=== PATIENT | female | born 1995 | race Caucasian/White ===

== ENCOUNTER 2018-07-23 18:40 | Emergency (ER) | payer OTHER ==
[2018-07-23 18:45] VITALS: RESP 20; TEMP 98.8
[2018-07-23] MEDS ORDERED: PENICILLIN VK 500MG STARTER 4 TAB BTL PO STA (19:32)
[2018-07-23] MEDS ORDERED: IBUPROFEN 600 MG STARTER PACK 4 TAB BTL PO STA (19:32)
--- NOTE | 2018-07-23 19:35 | ED ---
General Adult HPI - General Source: patient, RN notes reviewed Mode of arrival: ambulatory Limitations: no limitations <Chalino Irwin P - Last Filed: 07/23/18 19:48> <Lita Ward P - Last Filed: 07/23/18 22:20> - General Chief complaint: Dental/Oral Stated complaint: Dental Time Seen by Provider: 07/23/18 18:47 - History of Present Illness Initial comments: 23-year-old female presents to the emergency department for a chief complaint of dental pain 2 weeks. She states it worsened in the past one day. Patient states it is the left upper side of her teeth. She states she has noticed mild swelling of the left side of her face. She states she has been taking 100 mg of Motrin. Patient denies trismus, fevers, sublingual pain or edema, neck stiffness or nausea vomiting. She states she has had similar symptoms previously. She states she does not have a dentist but is looking to find one. Patient has no other complaints at this time including shortness of breath, chest pain, abdominal pain, nausea or vomiting, headache, or visual changes. ( Chalino Irwin) - Related Data Previous Rx's Medication Instructions Recorded Famotidine [Pepcid] 20 mg PO BID PRN #10 tablet 01/09/16 Ibuprofen [Motrin] 600 mg PO Q6HR PRN #20 tab 07/23/18 Penicillin V Potassium [Pen Vee K] 500 mg PO Q6H 10 Days tablet 07/23/18 Allergies Allergy/AdvReac Type Severity Reaction Status Date / Time No Known Allergies Allergy Verified 07/23/18 18:45 Review of Systems ROS Other: All systems not noted in ROS Statement are negative. <Chalino Irwin P - Last Filed: 07/23/18 19:48> ROS Other: All systems not noted in ROS Statement are negative. <Lita Ward P - Last Filed: 07/23/18 22:20> ROS Statement: Those systems with pertinent positive or pertinent negative responses have been documented in the HPI. Past Medical History Past Medical History: No Reported History History of Any Multi-Drug Resistant Organisms: None Reported Past Surgical History: No Surgical Hx Reported Past Psychological History: No Psychological Hx Reported Smoking Status: Never smoker Past Alcohol Use History: None Reported Past Drug Use History: None Reported <Chalino Irwin P - Last Filed: 07/23/18 19:48> General Exam Limitations: no limitations General appearance: alert, in no apparent distress Head exam: Present: atraumatic, normocephalic, normal inspection Eye exam: Present: normal appearance, PERRL, EOMI. Absent: scleral icterus, conjunctival injection, periorbital swelling ENT exam: Present: normal exam, mucous membranes moist, TM's normal bilaterally , normal external ear exam, other (Mild left facial swelling along the left upper jawline). Absent: normal oropharynx (tenderness to palpation in tooth 13 , no abscess along palpation of the gumline, no tenderness or edema noted sublingually) Neck exam: Present: normal inspection, full ROM. Absent: tenderness, meningismus, lymphadenopathy Respiratory exam: Present: normal lung sounds bilaterally. Absent: respiratory distress, wheezes, rales, rhonchi, stridor Cardiovascular Exam: Present: regular rate, normal rhythm, normal heart sounds. Absent: systolic murmur, diastolic murmur, rubs, gallop, clicks Neurological exam: Present: alert, oriented X3, CN II-XII intact Psychiatric exam: Present: normal affect, normal mood <Chalino Irwin P - Last Filed: 07/23/18 19:48> Vital Signs 07/23/18 07/23/18 07/23/18 18:43 19:43 19:44 Temperature 98.8 F Pulse Rate 112 H 120 H Respiratory 20 20 Rate Blood Pressure 159/98 168/117 163/104 O2 Sat by Pulse 100 99 Oximetry Medical Decision Making <Chalino Irwin P - Last Filed: 07/23/18 19:48> <Lita Ward P - Last Filed: 07/23/18 22:20> - Medical Decision Making 23-year-old female presents to the emergency department for chief complaint of dental pain 2 weeks. Pain worsened in the past one day. Patient does not currently dentist but is in the process of establishing a dentist. On exam patient has tenderness to palpation of tooth 13 without abscess. No sublingual edema or swelling. No fevers at home. Temperature is 98.8 here in the emergency department. Vitals show pulse rate of 112, blood pressure 159/98. Patient does admit she is nervous. Patient was given a starter pack of Motrin and penicillin. She will follow up with dentist in 1-2 days. She will return if she has any worsening symptoms. I did discuss following up with primary care for high blood pressure although it is likely due to pain at this time. Denies any dizziness, headache, blurred vision, chest pain, shortness of breath. Discussed with Dr. Ward (Chalino Irwin) I was available for consultation in the emergency department. The history and physical exam were done by the midlevel provider. I was consulted for this patient's care. I reviewed the case with the midlevel provider and based on their presentation of the patient, I agree with the assessment, medical decision making and plan of care as documented. (Lita Ward) Disposition Is patient prescribed a controlled substance at d/c from ED?: No Time of Disposition: 19:34 <Chalino Irwin - Last Filed: 07/23/18 19:48> <Lita Ward - Last Filed: 07/23/18 22:20> Clinical Impression: Pain, dental Disposition: HOME SELF-CARE Condition: Good Instructions: Toothache (ED) Additional Instructions: Please take Motrin and Tylenol for pain. Please ice the area. Take penicillin as directed. Follow-up with dentist in 1-2 days. Return to the emergency department if you have any worsening symptoms. [facility] Address: [address] [place], [place] [id number] Phone: [phone] Prescriptions: Ibuprofen [Motrin] 600 mg PO Q6HR PRN #20 tab PRN Reason: Pain Penicillin V Potassium [Pen Vee K] 500 mg PO Q6H 10 Days tablet Referrals: Hortencia Garcias MD [Primary Care Provider] - 1-2 days
[2018-07-23 19:44] VITALS: PULSE 120
[2018-07-23 19:45] VITALS: BP 163/104
== END 2018-07-23 19:50 | disposition home or self-care (01) ==
LOC: EC 18:40
DX: K08.89 Other specified disorders of teeth and supporting structures (principal); R22.0 Localized swelling, mass and lump, head
CPT/HCPCS: 99282

== ENCOUNTER 2018-10-22 19:01 | Emergency (ER) | payer OTHER ==
[2018-10-22 19:17] VITALS: RESP 18; TEMP 97.6
--- NOTE | 2018-10-22 20:06 | ED ---
Recheck HPI - General Chief Complaint: Recheck/Abnormal Lab/Rx Stated Complaint: wants test for mold Time Seen by Provider: 10/22/18 19:31 Source: patient, RN notes reviewed, old records reviewed Mode of arrival: ambulatory Limitations: no limitations - History of Present Illness Initial Comments: this Patient is a 23-year-old female who presents emergency department today with complaints of wanting a test for mold. Patient reports when she walks with certain how she tends to get a headache. She denies any headache at this time. She denies any other complaints. She states she otherwise feels well at this time. Patient states that she lives in a in apartment with multiple. They contacted her landlord with no help. She denies any difficulty breathing cough congestion shortness of breath. She denies any abdominal pain nausea or vomiting fevers or chills, chest pain, shortness of breath. - Related Data Home Medications Medication Instructions Recorded Confirmed No Known Home Medications 10/22/18 10/22/18 Allergies Allergy/AdvReac Type Severity Reaction Status Date / Time No Known Allergies Allergy Verified 10/22/18 19:32 Review of Systems ROS Statement: Those systems with pertinent positive or pertinent negative responses have been documented in the HPI. ROS Other: All systems not noted in ROS Statement are negative. Past Medical History Past Medical History: No Reported History History of Any Multi-Drug Resistant Organisms: None Reported Past Surgical History: No Surgical Hx Reported Past Psychological History: No Psychological Hx Reported Smoking Status: Never smoker Past Alcohol Use History: None Reported Past Drug Use History: None Reported General Exam - General Exam Comments Initial Comments: Patient is a an obese 23-year-old female. Alert and oriented 3. No acute distress. General: Well appearing, well nourished, in no distress. Oriented x 3, normal mood and affect . Ambulating without difficulty. Skin: Good turgor, Patient has pockmarks scarring over her face and arms. Hair: Normal texture and distribution. HEENT: Head: Normocephalic, atraumatic, no visible or palpable masses, depressions, or scaring. Eyes: Visual acuity intact, conjunctiva clear, sclera non-icteric, EOM intact, PERRL. Pharynx: Mucosa non-inflamed, no tonsillar hypertrophy or exudate Neck: Supple, without lesions, bruits, or adenopathy, thyroid non-enlarged and non-tender Heart: No cardiomegaly or thrills; regular rate and rhythm, no murmur or gallop Lungs: Clear to auscultation and percussion Abdomen: Bowel sounds normal, no tenderness, organomegaly, masses, or hernia Back: Spine normal without deformity or tenderness, no CVA tenderness Extremities: No amputations or deformities, cyanosis, edema or varicosities, peripheral pulses intact Musculoskeletal: Normal gait and station. No misalignment, asymmetry, crepitation, defects, tenderness, masses, effusions, decreased range of motion, instability, atrophy or abnormal strength or tone in the head, neck, spine, ribs , pelvis or extremities. Neurologic: CN 2-12 normal. Sensation to pain, touch, and proprioception normal. DTRs normal in upper and lower extremities. No pathologic reflexes. Psychiatric: Oriented X3, intact recent and remote memory, judgment and insight , normal mood and affect. Limitations: no limitations Course Vital Signs 10/22/18 10/22/18 19:13 20:16 Temperature 97.6 F Pulse Rate 79 78 Respiratory 18 18 Rate Blood Pressure 159/99 144/74 O2 Sat by Pulse 100 97 Oximetry Medical Decision Making - Medical Decision Making 23-year-old female reports that she has intermittent headache which she wasn't to steroids or rales. She was caused by multiple. She wants the test normal. Discussed at this time she has no difficulty breathing or headache or other complaints that there is no test I can do for mold. I discussed that she should follow-up with her [facility] primary care physician. All questions answered and return parameters were discussed. She was agreeable for discharge. Disposition Clinical Impression: Suspected condition not found Disposition: HOME SELF-CARE Condition: Good Instructions (If sedation given, give patient instructions): Acute Headache (ED ) Additional Instructions: Patient advised to follow-up with your housing department. Patient should make sure that you're having your dehumidifier's run. Return to the emergency department if any alarming signs or symptoms occur. Is patient prescribed a controlled substance at d/c from ED?: No Referrals: Hortencia Garcias MD [Primary Care Provider] - 1-2 days Time of Disposition: 20:02
[2018-10-22 20:17] VITALS: BP 144/74; PULSE 78
== END 2018-10-22 20:17 | disposition home or self-care (01) ==
LOC: EC 19:01
DX: Z03.818 Encounter for observation for suspected exposure to other biological agents ruled out (principal)
CPT/HCPCS: 99282

== ENCOUNTER 2018-11-07 22:48 | Emergency (ER) | payer OTHER ==
[2018-11-07] MEDS ORDERED: SODIUM CHLORIDE 0.9% 500 ML 500 ML IV STA (23:13)
[2018-11-07] MEDS ORDERED: ONDANSETRON 4 MG/2 ML VIAL IVP STA (23:13)
[2018-11-07 23:25] LABS: Basophils % (A) 0 %; Eosinophils % (A) 1 %; HCT 44.1 % (34.0-46.0); HGB 14.2 gm/dL (11.4-16.0); Lymphocytes # (A) 2.4 k/uL (1.0-4.8); Lymphocytes % (A) 28 %; MCH 26.3 pg (25.0-35.0); MCHC 32.2 g/dL (31.0-37.0); MCV 81.8 fL (80.0-100.0); Mean Platelet Volume 7.4; Monocytes # (A) 0.6 k/uL (0-1.0); Monocytes % (A) 7 %; Neutrophils # (A) 5.2 k/uL (1.3-7.7); Neutrophils % (A) 62 %; Platelet Count 237 k/uL (150-450); RBC 5.39 m/uL (3.80-5.40); WBC 8.5 k/uL (3.8-10.6)
[2018-11-07 23:38] LABS: ALT 54 U/L (9-52); AST 40 U/L (14-36); Albumin 4.6 g/dL (3.5-5.0); Alkaline Phosphatase 72 U/L (38-126); Amylase 43 U/L (30-110); Anion Gap 13 mmol/L; Blood Urea Nitrogen 11 mg/dL (7-17); Calcium 9.3 mg/dL (8.4-10.2); Carbon Dioxide 23 mmol/L (22-30); Chloride 107 mmol/L (98-107); Glucose 127 mg/dL (74-99); Lipase 101 U/L (23-300); Potassium 4.3 mmol/L (3.5-5.1); Sodium 143 mmol/L (137-145); Total Bilirubin 0.5 mg/dL (0.2-1.3); Total Protein 7.9 g/dL (6.3-8.2)
[2018-11-07 23:44] LABS: Amorphous Sediment,Urine Rare /hpf; Appearance,Urine Cloudy (Clear); Bacteria,Urine Rare /hpf; Bilirubin,Urine Negative (Negative); Blood,Urine Negative (Negative); Color,Urine Yellow; Glucose,Urine (UA) Negative (Negative); Hyaline Casts,Urine 27 /lpf (0-2); Ketones,Urine 2+ (Negative); Leukocyte Esterase,Urine Small (Negative); Mucus,Urine Moderate /hpf; Nitrite,Urine Negative (Negative); Protein,Urine 1+ (Negative); RBC,Urine 2 /hpf (0-5); Specific Gravity,Urine 1.025 (1.001-1.035); Squamous Epithelial Cell,Urine 11 /hpf (0-4); WBC,Urine 3 /hpf (0-5)
--- NOTE | 2018-11-08 00:32 | ED ---
Abdominal Pain HPI - General Chief Complaint: Abdominal Pain Stated Complaint: Vomiting Time Seen by Provider: 11/07/18 23:01 Source: patient Mode of arrival: ambulatory Limitations: no limitations - History of Present Illness Initial Comments: This patient is 23-year-old woman who presents to be evaluated for vomiting, diarrhea, and then also having an episode of epistaxis tonight. The patient states that she had not been feeling well for going on 24 hours now. She began having vomiting and diarrhea last night and believes she has had about 5-6 e pisodes. She states she has had probably 8 or 10 episodes of watery diarrhea. She has had a little bit of intermittent abdominal cramping but not really much in way of abdominal pain. She was convinced to come in tonight to be seen after she had noted some blood when she last vomited. She states that it seems that she had little bit of a nosebleed. The patient contrary to nursing notes does n ot believe the blood was gastrointestinal. She states that the nosebleed stopped after little bit of pressure. she denies other complaints MD Complaint: other (Vomiting and diarrhea) Onset/Timin -: days(s) Location: periumbilical Migration to: no migration Severity scale (1-10): 0 Quality: cramping Consistency: now resolved Improves With: vomiting Worsens With: nothing Associated Symptoms: nausea, vomiting, diarrhea - Related Data Home Medications Medication Instructions Recorded Confirmed Ibuprofen [Motrin Ib] 400 mg PO Q6H PRN 11/07/18 11/07/18 Phenylephrine/Dm/Acetaminop/GG 10 ml PO Q6H PRN 11/07/18 11/07/18 [Vicks Dayquil Severe Cold-Flu] Previous Rx's Medication Instructions Recorded Ondansetron Odt [Zofran ODT] 4 mg PO Q8HR PRN #10 tab 11/08/18 Allergies Allergy/AdvReac Type Severity Reaction Status Date / Time No Known Allergies Allergy Verified 11/07/18 23:12 Review of Systems ROS Statement: Those systems with pertinent positive or pertinent negative responses have been documented in the HPI. ROS Other: All systems not noted in ROS Statement are negative. Constitutional: Denies: fever, chills ENT: Reports: as per HPI, epistaxis Respiratory: Denies: cough, dyspnea Cardiovascular: Denies: chest pain, syncope Gastrointestinal: Reports: as per HPI, nausea, vomiting, diarrhea. Denies: a bdominal pain, hematemesis, melena, hematochezia Genitourinary: Denies: dysuria, hematuria, abnormal menses Musculoskeletal: Denies: back pain Skin: Denies: rash Neurological: Denies: headache, weakness Hematological/Lymphatic: Denies: easy bleeding Past Medical History Past Medical History: No Reported History History of Any Multi-Drug Resistant Organisms: None Reported Past Surgical History: No Surgical Hx Reported Past Psychological History: No Psychological Hx Reported Smoking Status: Never smoker Past Alcohol Use History: None Reported Past Drug Use History: None Reported General Exam Limitations: no limitations General appearance: alert, in no apparent distress Head exam: Present: atraumatic, normocephalic Eye exam: Present: normal appearance ENT exam: Present: other (Dried blood left naris) Respiratory exam: Present: normal lung sounds bilaterally. Absent: respiratory distress, wheezes, rales, rhonchi, stridor Cardiovascular Exam: Present: regular rate, normal rhythm, normal heart sounds. Absent: systolic murmur, diastolic murmur, rubs, gallop GI/Abdominal exam: Present: soft, normal bowel sounds. Absent: distended, tenderness, guarding, rebound, rigid, mass, hernia Extremities exam: Present: normal inspection, normal capillary refill. Absent: pedal edema Back exam: Present: normal inspection. Absent: CVA tenderness (R), CVA tenderness (L) Skin exam: Present: warm, dry, intact, normal color. Absent: rash Course Vital Signs 11/07/18 22:53 Temperature 97.9 F Pulse Rate 121 H Respiratory 16 Rate Blood Pressure 149/104 O2 Sat by Pulse 95 Oximetry Medical Decision Making - Lab Data Result diagrams: 11/07/18 23:08 11/07/18 23:08 Lab Results 11/07/18 11/07/18 11/07/18 Range/Units 23:08 23:08 23:08 WBC 8.5 (3.8-10.6) k/uL RBC 5.39 (3.80-5.40) m/uL Hgb 14.2 (11.4-16.0) gm/dL Hct 44.1 (34.0-46.0) % MCV 81.8 (80.0-100.0) fL MCH 26.3 (25.0-35.0) pg MCHC 32.2 (31.0-37.0) g/dL RDW 14.0 (11.5-15.5) % Plt Count 237 (150-450) k/uL Neutrophils % 62 % Lymphocytes % 28 % Monocytes % 7 % Eosinophils % 1 % Basophils % 0 % Neutrophils # 5.2 (1.3-7.7) k/uL Lymphocytes # 2.4 (1.0-4.8) k/uL Monocytes # 0.6 (0-1.0) k/uL Eosinophils # 0.0 (0-0.7) k/uL Basophils # 0.0 (0-0.2) k/uL Sodium 143 (137-145) mmol/L Potassium 4.3 (3.5-5.1) mmol/L Chloride 107 (98-107) mmol/L Carbon Dioxide 23 (22-30) mmol/L Anion Gap 13 mmol/L BUN 11 (7-17) mg/dL Creatinine 0.80 (0.52-1.04) mg/dL Est GFR (CKD-EPI)AfAm >90 (>60 ml/min/1.73 sqM) Est GFR (CKD-EPI)NonAf >90 (>60 ml/min/1.73 sqM) Glucose 127 H (74-99) mg/dL Calcium 9.3 (8.4-10.2) mg/dL Total Bilirubin 0.5 (0.2-1.3) mg/dL AST 40 H (14-36) U/L ALT 54 H (9-52) U/L Alkaline Phosphatase 72 (38-126) U/L Total Protein 7.9 (6.3-8.2) g/dL Albumin 4.6 (3.5-5.0) g/dL Amylase 43 (30-110) U/L Lipase 101 (23-300) U/L Urine Color Yellow Urine Appearance Cloudy H (Clear) Urine pH 6.0 (5.0-8.0) Ur Specific [place] 1.025 (1.001-1.035) Urine Protein 1+ H (Negative) Urine Glucose (UA) Negative (Negative) Urine Ketones 2+ H (Negative) Urine Blood Negative (Negative) Urine Nitrite Negative (Negative) Urine Bilirubin Negative (Negative) Urine Urobilinogen 3.0 (<2.0) mg/dL Ur Leukocyte Esterase Small H (Negative) Urine RBC 2 (0-5) /hpf Urine WBC 3 (0-5) /hpf Ur Squamous Epith Cells 11 H (0-4) /hpf Amorphous Sediment Rare H (None) /hpf Urine Bacteria Rare H (None) /hpf Hyaline Casts 27 H (0-2) /lpf Urine Mucus Moderate H (None) /hpf Urine HCG, Qual (Not Detectd) 11/07/18 Range/Units 23:08 WBC (3.8-10.6) k/uL RBC (3.80-5.40) m/uL Hgb (11.4-16.0) gm/dL Hct (34.0-46.0) % MCV (80.0-100.0) fL MCH (25.0-35.0) pg MCHC (31.0-37.0) g/dL RDW (11.5-15.5) % Plt Count (150-450) k/uL Neutrophils % % Lymphocytes % % Monocytes % % Eosinophils % % Basophils % % Neutrophils # (1.3-7.7) k/uL Lymphocytes # (1.0-4.8) k/uL Monocytes # (0-1.0) k/uL Eosinophils # (0-0.7) k/uL Basophils # (0-0.2) k/uL Sodium (137-145) mmol/L Potassium (3.5-5.1) mmol/L Chloride (98-107) mmol/L Carbon Dioxide (22-30) mmol/L Anion Gap mmol/L BUN (7-17) mg/dL Creatinine (0.52-1.04) mg/dL Est GFR (CKD-EPI)AfAm (>60 ml/min/1.73 sqM) Est GFR (CKD-EPI)NonAf (>60 ml/min/1.73 sqM) Glucose (74-99) mg/dL Calcium (8.4-10.2) mg/dL Total Bilirubin (0.2-1.3) mg/dL AST (14-36) U/L ALT (9-52) U/L Alkaline Phosphatase (38-126) U/L Total Protein (6.3-8.2) g/dL Albumin (3.5-5.0) g/dL Amylase (30-110) U/L Lipase (23-300) U/L Urine Color Urine Appearance (Clear) Urine pH (5.0-8.0) Ur Specific [place] (1.001-1.035) Urine Protein (Negative) Urine Glucose (UA) (Negative) Urine Ketones (Negative) Urine Blood (Negative) Urine Nitrite (Negative) Urine Bilirubin (Negative) Urine Urobilinogen (<2.0) mg/dL Ur Leukocyte Esterase (Negative) Urine RBC (0-5) /hpf Urine WBC (0-5) /hpf Ur Squamous Epith Cells (0-4) /hpf Amorphous Sediment (None) /hpf Urine Bacteria (None) /hpf Hyaline Casts (0-2) /lpf Urine Mucus (None) /hpf Urine HCG, Qual Not Detected (Not Detectd) Disposition Clinical Impression: Epistaxis, Vomiting Disposition: HOME SELF-CARE Condition: Good Instructions (If sedation given, give patient instructions): Acute Nausea and Vomiting (ED) Prescriptions: Ondansetron Odt [Zofran ODT] 4 mg PO Q8HR PRN #10 tab PRN Reason: Nausea Is patient prescribed a controlled substance at d/c from ED?: No Referrals: Hortencia Garcias MD [Primary Care Provider] - 1-2 days
[2018-11-08 00:41] VITALS: BP 134/65; PULSE 80; RESP 15; TEMP 98
== END 2018-11-08 00:40 | disposition home or self-care (01) ==
LOC: EC 22:48
DX: R11.2 Nausea with vomiting, unspecified (principal); R04.0 Epistaxis; R19.7 Diarrhea, unspecified; R10.33 Periumbilical pain
CPT/HCPCS: 36415; 80053; 82150; 83690; 85025; 81001; 81025; 99284; 96374; 96361; J2405

== ENCOUNTER 2019-03-13 23:16 | Emergency (ER) | payer OTHER ==
[2019-03-13 23:33] VITALS: RESP 18; TEMP 98.3
--- NOTE | 2019-03-14 00:23 | XR ---
EXAM: XR Right Ankle Complete, 3 or More Views CLINICAL HISTORY: None. TECHNIQUE: Frontal, lateral and oblique views of the right ankle. COMPARISON: No relevant prior studies available. FINDINGS: Bones/joints: Acute non-displaced fracture of the medial and lateral malleolus. Evidence of prior plate and screws noted about the distal fibula. No dislocation. Soft tissues: Mild soft tissue swelling about the ankle. IMPRESSION: Acute non-displaced fracture of the medial and lateral malleolus.
--- NOTE | 2019-03-14 00:45 | ED ---
Lower Extremity Injury HPI - General Chief Complaint: Extremity Injury, Lower Stated Complaint: Fall, Ankle pain Time Seen by Provider: 03/13/19 23:48 Source: patient Mode of arrival: wheelchair Limitations: no limitations - History of Present Illness Initial Comments: Patient is a 23-year-old male presenting to emergency Department with right ankle pain. Patient reports 2 hours ago she was walking down stairs when she slipped and rolled her ankle. Patient reports minimal pain and rates it a 3 and throbbing. Patient reports the pain is exacerbated with weightbearing but she is able to ambulate without much difficulty. Patient denies any numbness or tingling. Patient reports previous surgery in her right lower leg. Patient denies taking any medication to alleviate the symptoms. Patient denies any head trauma after fall. - Related Data Home Medications Medication Instructions Recorded Confirmed Ibuprofen [Motrin Ib] 400 mg PO Q6H PRN 11/07/18 11/07/18 Phenylephrine/Dm/Acetaminop/GG 10 ml PO Q6H PRN 11/07/18 11/07/18 [Vicks Dayquil Severe Cold-Flu] Previous Rx's Medication Instructions Recorded Ondansetron Odt [Zofran ODT] 4 mg PO Q8HR PRN #10 tab 11/08/18 Allergies Allergy/AdvReac Type Severity Reaction Status Date / Time No Known Allergies Allergy Verified 03/13/19 23:33 Review of Systems ROS Statement: Those systems with pertinent positive or pertinent negative responses have been documented in the HPI. ROS Other: All systems not noted in ROS Statement are negative. Past Medical History Past Medical History: No Reported History History of Any Multi-Drug Resistant Organisms: None Reported Past Surgical History: No Surgical Hx Reported Past Psychological History: No Psychological Hx Reported Smoking Status: Never smoker Past Alcohol Use History: None Reported Past Drug Use History: None Reported General Exam - General Exam Comments Initial Comments: General: Well-developed well-nourished distress HEENT: Normocephalic/atraumatic, PERLL, pharynx erythema, swallowing well, EAC no erythema, no exudates, TM clear, no cervical lymph nodes Neck: Supple, nontender, trachea midline Chest/Lungs: Normal respirations, no signs of respiratory distress clear to auscultation bilaterally no wheezes, rales, rhonchi Cardiac: Regular rate and rhythm, normal S1-S2, no murmurs rubs or gallops Abdomen/GI: Soft nontender, bowel sounds equal or quadrant x4, no guarding, no rebound no CVA tenderness : Deferred Musculoskeletal: Lateral and medial malleoli tenderness with palpation of the right leg, normal capillary refill bilaterally, +2 dorsalis pedis and posterior tibialis laterally, limited range of motion due to pain. Skin: Warmth, no rashes or lesions, no cyanosis or diaphoresis Neurologic: AAO x 3, CN 2-12 intact, Psychiatric: Mood and affect normal, judgment normal Limitations: no limitations Course Vital Signs 03/13/19 03/14/19 23:31 01:14 Temperature 98.3 F 98.3 F Pulse Rate 73 78 Respiratory 18 18 Rate Blood Pressure 133/85 148/78 O2 Sat by Pulse 100 98 Oximetry Procedures - Orthopedic Splinting/Casting Injury #1 Side: right Lower Extremity Injury Location: ankle Lower Extremity Immobilizer: stirrup splint Other Orthopedic Equipment: crutches Medical Decision Making - Medical Decision Making Patient is a 23-year-old female presenting to emergency Department with right ankle pain. X-ray of the right ankle is indicative of a medial and lateral malleoli fractures. Stirrup splint was applied. Patient advised to apply cold compress on the right ankle to minimize swelling. Patient advised to alternate between Tylenol and ibuprofen for pain control. Patient advised to follow with orthopedics for further management. Strict return parameters were thoroughly discussed with patient who is understanding and agreeable. Case discussed with physician. Disposition Clinical Impression: Medial malleolar fracture, Lateral malleolar fracture Disposition: HOME SELF-CARE Condition: Stable Instructions (If sedation given, give patient instructions): Ankle Fracture (DC) Additional Instructions: Please follow with orthopedics. Please return to emergency department if symptoms worsen. Is patient prescribed a controlled substance at d/c from ED?: No Referrals: Hortencia Garcias MD [Primary Care Provider] - 1-2 days Time of Disposition: 00:44
[2019-03-14 01:14] VITALS: BP 148/78; PULSE 78
== END 2019-03-14 01:14 | disposition home or self-care (01) ==
LOC: EC 23:16
DX: S82.841A Displaced bimalleolar fracture of right lower leg, initial encounter for closed fracture (principal); W10.9XXA Fall (on) (from) unspecified stairs and steps, initial encounter; X50.1XXA Overexertion from prolonged static or awkward postures, initial encounter; Y93.01 Activity, walking, marching and hiking
CPT/HCPCS: 29515; 99283

== ENCOUNTER → 2019-03-30 | Outpatient (CLI) | payer OTHER | END | disposition home or self-care (01) | LOC: LABWHC1 16:09 | PROVIDERS: ATTEND Physician Assistant | DX: M25.571 Pain in right ankle and joints of right foot (principal); S82.844D Nondisplaced bimalleolar fracture of right lower leg, subsequent encounter for closed fracture with routine healing | CPT/HCPCS: 36415; 82306 ==

== ENCOUNTER → 2019-05-03 | Outpatient (CLI) | payer OTHER | END | disposition home or self-care (01) | LOC: LABWHC1 15:52 | PROVIDERS: ATTEND Physician Assistant | DX: M25.571 Pain in right ankle and joints of right foot (principal); S82.844D Nondisplaced bimalleolar fracture of right lower leg, subsequent encounter for closed fracture with routine healing | CPT/HCPCS: 36415; 82306 ==

== ENCOUNTER 2019-10-06 15:21 | Emergency (ER) | payer OTHER ==
[2019-10-06 15:31] VITALS: BP 131/100; PULSE 84; RESP 18; TEMP 97.9
--- NOTE | 2019-10-06 16:07 | XR ---
EXAMINATION TYPE: XR chest 2V DATE OF EXAM: 10/06/2019 COMPARISON: 12/16/2012 HISTORY: 24-year-old female cough TECHNIQUE: PA and lateral views FINDINGS: The cardiomediastinal silhouette, aorta, and pulmonary vasculature are within normal limits. Lungs an d pleural spaces are clear. IMPRESSION: No acute cardiopulmonary process.
--- NOTE | 2019-10-06 16:10 | XR ---
EXAMINATION TYPE: XR ankle complete RT DATE OF EXAM: 10/06/2019 COMPARISON: 03/13/2019 HISTORY: 24-year-old female swelling and pain for 3 days TECHNIQUE: 3 views FINDINGS: Lateral sideplate and screw fixation of the distal fibula. Previously seen medial malleolus and dista l fibular fractures appear healed. Some bony thickening along the lower syndesmosis was present back on 03/13/2019 suggesting old syndesmotic injury. Corticated bone fragment below the medial malleolus re lating to remote injury. Tiny plantar calcaneal spur. No acute fracture, subluxation, dislocation see n. There may be some slight focal soft tissue swelling lateral aspect of the distal third leg. IMPRESSION: 1. Underlying lateral sideplate and screw fixation hardware along the distal fibula. Healed bimalleol ar ankle fractures. Old syndesmotic injury. 2. There may be some mild focal soft tissue swelling lateral aspect of the distal third leg. Correlat e for possible cellulitis.
--- NOTE | 2019-10-06 16:22 | ED ---
General Adult HPI - General Chief complaint: Upper Respiratory Infection Stated complaint: Sob/ankle pain Time Seen by Provider: 10/06/19 15:32 Source: patient Mode of arrival: ambulatory Limitations: no limitations - History of Present Illness Initial comments: Patient is a 24-year-old female presenting to the emergency department with chief complaint of a cough. States that she wants to be evaluated for bronchitis. Patient reports a nonproductive cough for slightly over a week. Denies any sinus congestion but does report bilateral otalgia intermittent. Patient denies any shortness of breath or chest pain. Denies smoking or history of asthma. Denies any sore throat. Patient does report occasional pain in the right ankle where she had a previous ankle surgery. She also has hardware present as well. Patient reports occasional pain with ambulation over the last several days. She does report some mild swelling in the region. Reports full range of motion. Denies any skin changes or ecchymosis. - Related Data Home Medications Medication Instructions Recorded Confirmed Ibuprofen [Motrin Ib] 400 mg PO Q6H PRN 11/07/18 11/07/18 Phenylephrine/Dm/Acetaminop/GG 10 ml PO Q6H PRN 11/07/18 11/07/18 [Vicks Dayquil Severe Cold-Flu] Previous Rx's Medication Instructions Recorded Ondansetron Odt [Zofran ODT] 4 mg PO Q8HR PRN #10 tab 11/08/18 Allergies Allergy/AdvReac Type Severity Reaction Status Date / Time No Known Allergies Allergy Verified 10/06/19 15:35 Review of Systems ROS Statement: Those systems with pertinent positive or pertinent negative responses have been documented in the HPI. ROS Other: All systems not noted in ROS Statement are negative. Past Medical History Past Medical History: No Reported History, Hypertension History of Any Multi-Drug Resistant Organisms: None Reported Past Surgical History: No Surgical Hx Reported Past Psychological History: No Psychological Hx Reported Smoking Status: Never smoker Past Alcohol Use History: None Reported Past Drug Use History: None Reported General Exam Limitations: no limitations General appearance: alert, in no apparent distress Head exam: Present: atraumatic, normocephalic, normal inspection Eye exam: Present: normal appearance Pupils: Present: normal accommodation ENT exam: Present: normal exam, normal oropharynx, mucous membranes moist, TM's normal bilaterally, normal external ear exam Neck exam: Present: normal inspection, full ROM. Absent: lymphadenopathy Respiratory exam: Present: normal lung sounds bilaterally. Absent: wheezes Cardiovascular Exam: Present: regular rate, normal rhythm, normal heart sounds Extremities exam: Present: full ROM, normal capillary refill, other (+2 ulnar and radial pulses bilaterally.). Absent: normal inspection (Very mild swelling on the lateral aspect of the right ankle.), tenderness (No tenderness surrounding the region of swelling.) Back exam: Present: normal inspection, full ROM Neurological exam: Present: alert, oriented X3 Psychiatric exam: Present: normal affect, normal mood Skin exam: Present: warm, dry, intact, normal color Course Vital Signs 10/06/19 15:26 Temperature 97.9 F Pulse Rate 84 Respiratory 18 Rate Blood Pressure 131/100 O2 Sat by Pulse 97 Oximetry Medical Decision Making - Medical Decision Making Patient is a 24-year-old female presenting to the emergency department with a chief complaint of cough and ankle pain. On exam patient is not wheezing, patient had a respiratory distress. No upper respiratory symptoms. Chest x-ray is unremarkable. Patient has full range of motion right foot and is only complaining of tenderness along the lateral aspect of the distal lower leg. Has mild tenderness over the lateral malleolus as well. X-ray of the region shows mild soft tissue swelling but no changes to the hardware and the fracture is healing well. No sign of cellulitis on physical examination. I suspect the patient is having pain due to being morbidly obese. Patient was to follow with primary care. Strict return parameters were thoroughly discussed the patient is understanding and agreeable. Case discussed with physician. Disposition Clinical Impression: Bronchitis, Right ankle pain Disposition: HOME SELF-CARE Condition: Stable Instructions (If sedation given, give patient instructions): Acute Bronchitis (ED) Additional Instructions: Alternate between Tylenol Motrin for pain control. Apply cold compress to minimize symptoms to the ankle. Return to emergency department if symptoms worsen. Is patient prescribed a controlled substance at d/c from ED?: No Referrals: Hortencia Garcias MD [Primary Care Provider] - 1-2 days Time of Disposition: 16:26
== END 2019-10-06 16:35 | disposition home or self-care (01) ==
LOC: EC 15:21
DX: J40 Bronchitis, not specified as acute or chronic (principal); M25.571 Pain in right ankle and joints of right foot; E66.01 Morbid (severe) obesity due to excess calories; M79.89 Other specified soft tissue disorders; H92.03 Otalgia, bilateral; S82.891D Other fracture of right lower leg, subsequent encounter for closed fracture with routine healing; Z96.698 Presence of other orthopedic joint implants; Z68.41 Body mass index [BMI] 40.0-44.9, adult; X58.XXXD Exposure to other specified factors, subsequent encounter
CPT/HCPCS: 71046; 99283

== ENCOUNTER → 2019-11-20 | Outpatient (CLI) | payer OTHER ==
[2019-11-20 16:19] LABS: Basophils # (A) 0.1 k/uL (0-0.2); Basophils % (A) 1 %; Eosinophils # (A) 0.1 k/uL (0-0.7); Eosinophils % (A) 2 %; HCT 42.1 % (34.0-46.0); HGB 13.2 gm/dL (11.4-16.0); Lymphocytes # (A) 2.4 k/uL (1.0-4.8); Lymphocytes % (A) 33 %; MCH 26.6 pg (25.0-35.0); MCHC 31.5 g/dL (31.0-37.0); MCV 84.6 fL (80.0-100.0); Mean Platelet Volume 7.9; Monocytes # (A) 0.3 k/uL (0-1.0); Monocytes % (A) 4 %; Neutrophils # (A) 4.3 k/uL (1.3-7.7); Neutrophils % (A) 58 %; Platelet Count 269 k/uL (150-450); RBC 4.97 m/uL (3.80-5.40); RDW 13.3 % (11.5-15.5); WBC 7.3 k/uL (3.8-10.6)
[2019-11-20 23:50] LABS: African American GFR (CKD) 118.8 (60.0-200.0); Albumin 4.8 g/dL (3.80-4.90); Calcium 9.5 mg/dL (8.7-10.3); Chol/HDL Ratio 3.68; Globulin 2.4 g/dL (1.6-3.3); LDL Cholesterol,Calculated 85.4 mg/dL (0.0-131.0); Non-African American GFR(CKD) 102.5 (60.0-200.0); Total Bilirubin 0.5 mg/dL (0.3-1.2); Total Protein 7.2 g/dL (6.2-8.2); VLDL Calculation 24.6 mg/dL (5.00-40.00)
[2019-11-20 23:56] LABS: T4, Free (Free Thyroxine) 1.2 ng/dL (0.80-1.80)
== END | disposition home or self-care (01) ==
LOC: LABWHC1 15:59
PROVIDERS: ATTEND Internal Medicine
DX: I10 Essential (primary) hypertension (principal); E28.2 Polycystic ovarian syndrome
CPT/HCPCS: 36415; 80053; 80061; 84439; 84443; 85025

== ENCOUNTER → 2020-01-23 | Outpatient (CLI) | payer OTHER ==
--- NOTE | 2020-01-23 13:55 | MR ---
EXAMINATION TYPE: MR ankle RT wo con DATE OF EXAM: 01/23/2020 COMPARISON: Ankle radiographs dated 10/06/2019 HISTORY: Having pain in her heal area of her Ankle. Pain started about 1 Month ago. Surgery 2009 TECHNIQUE: Multiplanar, multisequence images of the right ankle were acquired without intravenous contrast. FINDINGS: The visualized portion of the Achilles tendon is unremarkable in signal and morphology. However the b ase of the plantar fascia demonstrates mild increase T2 fat sat signal as does a very small plantar h eel spur. The visualized remaining portions of the plantar fascia demonstrate a smooth contour and ar e also unremarkable signal. The bone marrow signal of the remaining osseous structures is within normal limits. There is a lateral fixation plate of the fibula creating susceptibility artifact, partially obscuring visualization. There is also susceptibility artifact in the region of the posterior talofibular liga ment obscuring visualization. The posterior talofibular ligament is only questionably intact and does appear thickened with surrounding fluid however the anterior talofibular ligament appears intact. Th e deltoid ligament appears intact and is unremarkable in signal as is the spring ligament. The [place] ligament also appears intact. The lateral compartment tendons, anterior compartment tendons, and medial compartment compartment ten dons appear intact. There is very minimal subcutaneous edema above the ankle joint. A trace tibiotala r joint effusion is seen. Sinus tarsus is unremarkable. Small corticated bone fragments below the med ial malleolus are appreciated on radiograph, sequela prior fracture injury. IMPRESSION: 1. Mild increased signal and a small plantar enthesophyte and within the adjacent origin of the plant ar fascia. Correlate for plantar fasciitis. No discontinuity or nodularity within the visualized port ions of the plantar fascia. 2. Abnormal thickening and surrounding fluid of the posterior talofibular ligament however no discret e discontinuity is seen in the anterior talofibular ligament appears intact and unremarkable. Mid gra de sprain of the posterior talofibular ligament is suspected. 3. Small tibiotalar joint effusion and minimal subcutaneous edema about the ankle joint. 4. Postsurgical fixation of a prior fibular fracture.
== END | disposition home or self-care (01) ==
LOC: RADMRIMAIN 12:36
PROVIDERS: ATTEND Orthopaedic Surgery
DX: R93.7 Abnormal findings on diagnostic imaging of other parts of musculoskeletal system (principal); S82.844D Nondisplaced bimalleolar fracture of right lower leg, subsequent encounter for closed fracture with routine healing; M72.2 Plantar fascial fibromatosis; Z98.890 Other specified postprocedural states

== ENCOUNTER → 2024-12-17 | Outpatient (CLI) | payer OTHER ==
--- NOTE | 2024-12-17 16:28 | US ---
EXAMINATION TYPE: US pelvic complete DATE OF EXAM: 12/17/2024 COMPARISON: US 2009 CLINICAL INDICATION: Female, 29 years old with history of N92.6 IRREGULAR MENSTRUATION R73.03 PREDIAB ETES; Prediabetes. Irregular periods. G0 TECHNIQUE: Transabdominal (TA). Transabdominal grayscale sonographic images of the pelvis were acquired. Transvaginal sonographic im ages were not performed - patient did not want to do transvaginal exam. Doppler imaging: Not performed. FINDINGS: Date of LMP: 12/15/2024 EXAM MEASUREMENTS: Uterus: 9.9 x 4.8 x 4.6 cm Endometrial Stripe: 0.36 cm Right Ovary: Obscured Left Ovary: Possibly seen 1. Uterus: Anteverted Limited visibility 2. Endometrium: 0.36 cm 3. Right Ovary: Obscured 4. Left Ovary: Possibly seen, see adnexa comments 5. Bilateral Adnexa: In the left adnexa, there is a hypoechoic area with anechoic area seen within: 3.8 x 3.1 x 3.1 cm - question left ovary versus other. Internal anechoic area measures 2.9 cm in gre atest dimension. 6. Posterior cul-de-sac: Appears wnl Anteverted uterus without focal lesion within visualized portions. Endometrium is normal thickness. T he right ovary is obscured by overlying bowel gas. There is a hypoechoic structure with a cyst within the left adnexa. IMPRESSION: Limited examination due to only transabdominal imaging. Patient declined transvaginal loco ging. 1. Left adnexal hypoechoic structure with cyst. Probably represents the left ovary with a follicle v ersus other etiologies. Consider follow-up ultrasound in 6 to 12 weeks. 2. Nonvisualization of the right ovary due to overlying bowel gas. 3. Normal thickness endometrium. [facility], , 12/17/2024 4:25 PM
== END | disposition home or self-care (01) ==
LOC: RADUSWWP 15:54
PROVIDERS: ATTEND Family Medicine
DX: N83.8 Other noninflammatory disorders of ovary, fallopian tube and broad ligament (principal); N92.6 Irregular menstruation, unspecified; R73.03 Prediabetes
CPT/HCPCS: 76856